=== PATIENT | male | born 2000 | race Caucasian/White ===

== ENCOUNTER 2021-11-22 23:18 | Emergency (ER) | payer BC ==
[2021-11-23 00:02] LABS: #Eosinphils 0.2 10x3/uL (0.0-0.5); #Monocytes 0.6 10x3/uL (0.0-1.1); #Neutrophils 4.3 10x3/uL (1.5-8.4); %Basophils 0.5 % (0.0-2.0); %Eosinophils 2.9 % (0.0-6.0); %Lymphocytes 33.5 % (18.0-47.0); %Monocytes 7.4 % (0.0-10.0); %Neutrophils 55.4 % (40.0-75.0); Hemoglobin 16.4 g/dL (13.5-17.5); Mean Corpuscular HGB CONC 34.3 g/dL (32.0-36.0); Mean Corpuscular Hemoglobin 28.7 pg (27.0-33.0); Mean Corpuscular Volume 83.7 fl (81.2-95.1); Mean Platelet Volume 9.8 fl (7.4-10.4); Platelet Count 282 10x3/uL (150-450); RBC Distribution Width 12.7 % (11.5-14.5); Red Blood Cell (RBC) Count 5.71 10x6/uL (4.32-5.72); White Blood Cell (WBC) Count 7.7 10x3/uL (3.5-10.5)
[2021-11-23 00:13] LABS: Bilirubin Neg (Negative); Blood, Urine Negative (Negative); Clarity Clear (Clear); Glucose, Urine (Dipstick) Normal (Negative); Ketone, Urine Negative (Negative); Leukocyte Negative (Negative); Nitrite Negative (Negative); Protein, Urine (Dipstick) Negative (Neg-Trace); Urobilinogen Normal mg/dL (Less than 2)
[2021-11-23 00:13] LABS: ALT (SGPT) 34 U/L (8-55); AST (SGOT) 19 U/L (5-34); Alkaline Phosphatase 85 U/L (50-130); Anion Gap 12 mmol/L (10-20); BUN (Urea Nitrogen) 4 mg/dL (8.9-20.6); Bilirubin, Total 1.8 mg/dL (0.2-1.2); Calc. Creatinine Clearance 0 mL/min (70-130); Calcium 9.9 mg/dL (7.8-10.44); Carbon Dioxide 28 mmol/L (22-29); Chloride 103 mmol/L (98-107); Globulin 3.2 g/dL (2.4-3.5); Glucose 119 mg/dL (70-105); Potassium 3.8 mmol/L (3.5-5.1); Protein, Total 8.2 g/dL (6.0-8.3); Sodium 139 mmol/L (136-145)
[2021-11-23 00:18] LABS: Pregnancy Test - Urine (BHCG) Negative (Negative); Pregu Control Background? CLEAR/WHITE (CLR/WHITE); Pregu Control Bar Appear? YES (CONTROL BAR)
== END 2021-11-23 01:04 | disposition home or self-care (01) ==
LOC: CSHERS 23:18
DX: R56.9 Unspecified convulsions (principal)
CPT/HCPCS: 80053; 81003; 81025; 85025; 99284

== ENCOUNTER 2022-04-16 01:55 | Emergency (ER) | payer BC ==
[2022-04-16] MEDS ORDERED: diphenhydrAMINE 50 MG/ML VIAL ONE (02:43)
[2022-04-16] MEDS ORDERED: Dexamethasone 10 MG/ML VIAL ONE (02:43)
[2022-04-16] MEDS ORDERED: Metoclopramide HCl 10 MG/2 ML VIAL ONE (02:44)
[2022-04-16] MEDS ORDERED: Ketorolac Tromethamine 30 MG/ML VIAL ONE (02:44)
== END 2022-04-16 05:20 | disposition home or self-care (01) ==
LOC: CSHERS 01:55
DX: R51.9 Headache, unspecified (principal)
CPT/HCPCS: 93005; J1100; J1200; J1885; J2765